=== PATIENT | female | born 1965 | race Caucasian/White ===

== ENCOUNTER 2020-03-04 05:40 | Emergency (ER) | payer BC ==
[~2020-03-04] VITALS: Ht 165.1 cm; Wt 90.0 kg
[2020-03-04 05:44] VITALS: BP 160/102
--- NOTE | 2020-03-04 07:11 | NUR ---
PT WAS TRIAGED EARLIER BUT WENT BACK TO WORK TO GIVE CHANGE OF SHIFT REPORT. NOW PT IN ROOM 17 AND XRAYS ARE ORDERED.
== END 2020-03-04 07:53 | disposition home or self-care (01) ==
LOC: ER 05:45
DX: S50.11XA Contusion of right forearm, initial encounter (principal); W01.198A Fall on same level from slipping, tripping and stumbling with subsequent striking against other object, initial encounter; Y93.89 Activity, other specified; Y92.89 Other specified places as the place of occurrence of the external cause; Y99.8 Other external cause status
CPT/HCPCS: 73090; 73110; 99284